=== PATIENT | female | born 1980 | race Caucasian/White ===

== ENCOUNTER 2022-01-20 01:52 | Emergency (ER) | payer MEDICARE, MEDICAID ==
[2022-01-20] VITALS (11 sets, daily range): BP systolic 91–123; BP diastolic 42–97
[~2022-01-20] VITALS: Ht 165.1 cm; Wt 50.0 kg
[~2022-01-20 01:52] MED LIST: METRONIDAZOLE500 MG PO
[2022-01-20] MEDS ORDERED: LYRICA25 MG PO (02:43)
[2022-01-20] MEDS ORDERED: OXYCODONE5 M1 PO (02:44)
[2022-01-20 02:53] LABS: HEMATOCRIT 40.1 % (37.0-47.0); HEMOGLOBIN 13.5 g/dl (12.0-16.0); IMMATURE GRANULOCYTES 0.8 % (0.0-5.0); MEAN CELL VOLUME 93.5 fL CALC (80.0-100.0); MEAN CORPUSCULAR HGB 31.5 pG CALC (26.0-32.0); MEAN CORPUSCULAR HGB CONC 33.7 g/dL CAL (32.0-36.0); NEUT# 9.03 thou/uL (2.00-7.15); RED BLOOD COUNT 4.29 mill/uL (4.20-5.60)
[2022-01-20 03:09] LABS: ALBUMIN 4.3 g/dL (3.2-5.0); ALKALINE PHOSPHATASE 59 u/l (38-126); AMYLASE 75 u/l (30-110); BUN 11 mg/dL (7-17); BUN/CREATININE RATIO 16 (12-20 (CALC)); CHLORIDE 110 mmol/l (95-108); CREATININE 0.7 mg/dL (0.5-1.0); GFR > 60 ML/MIN (>=60 (CALC)); GFR FOR AFR.AMER. > 60 ML/MIN (>=60 (CALC)); LIPASE 96 u/l (23-300); POTASSIUM 3.9 mmol/l (3.5-5.1); SGOT/AST 20 u/l (14-36); SODIUM 144 mmol/l (137-146); TOTAL PROTEIN 7.3 g/dL (6.3-8.2)
[2022-01-20 03:13] LABS: ANION GAP 11 (6-22 (CALC)); BILIRUBIN, TOTAL 0.2 mg/dL (0.0-1.4); CARBON DIOXIDE 27 mmol/l (22-30)
[2022-01-20 06:28] LABS: URINE BILIRUBIN - DIPSTICK NEGATIVE (NEGATIVE); URINE BLOOD DIPSTICK SMALL (NEGATIVE); URINE COLOR YELLOW; URINE GLUCOSE - DIPSTICK NEGATIVE (NEGATIVE); URINE KETONE NEGATIVE (NEGATIVE); URINE PROTEIN - DIPSTICK TRACE mg/dL (NEG-TRACE); URINE SPECIFIC GRAVITY <=1.005; URINE UROBILINOGEN - DIPSTICK 0.2 E.U./dL (0.2)
[2022-01-20 06:29] LABS: URINE LEUK ESTERASE SMALL (NEGATIVE); URINE NITRITE - DIPSTICK NEGATIVE (Negative)
[2022-01-20 06:37] LABS: URINE SQUAMOUS EPITHELIAL CELL FEW EPI/hpf (0-FEW); URINE WBC 20-50 WBC/hpf (0-5)
[2022-01-20] MEDS ORDERED: MACROBID100 M1 PO (06:48)
== END 2022-01-20 09:42 | disposition home or self-care (01) ==
LOC: ED 01:52
PROVIDERS: Family Medicine
DX: N39.0 Urinary tract infection, site not specified (principal); F17.200 Nicotine dependence, unspecified, uncomplicated; B96.4 Proteus (mirabilis) (morganii) as the cause of diseases classified elsewhere
CPT/HCPCS: Q9967

== ENCOUNTER 2022-02-24 07:39 | Observation (INO) | payer MEDICARE ==
[~2022-02-24] VITALS: Ht 165.1 cm; Wt 51.0 kg
[2022-02-24] VITALS (7 sets, daily range): BP systolic 115–137; BP diastolic 51–64
[~2022-02-24 07:39] MED LIST changes: +LYRICA150 MG PO; +MACROBID100 M1 PO; +PERCOCET 10/31 COMBO PO
--- NOTE | 2022-02-24 07:40 | NUR ---
PT ARRIVES AMBULATORY TO ROOM FOR TRIAGE AT THIS TIME
[2022-02-24 08:09] LABS: HEMATOCRIT 42.1 % (37.0-47.0); HEMOGLOBIN 13.9 g/dl (12.0-16.0); IMMATURE GRANULOCYTES 0.2 % (0.0-5.0); MEAN CELL VOLUME 95.9 fL CALC (80.0-100.0); MEAN CORPUSCULAR HGB 31.7 pG CALC (26.0-32.0); NEUT# 13.13 thou/uL (2.00-7.15); RED BLOOD COUNT 4.39 mill/uL (4.20-5.60); RED CELL DISTRI WIDTH 12.4 % (11.5-15.5)
[2022-02-24 08:27] LABS: ALBUMIN 4.6 g/dL (3.2-5.0); ALKALINE PHOSPHATASE 68 u/l (38-126); ANION GAP 16 (6-22 (CALC)); BUN 16 mg/dL (7-17); BUN/CREATININE RATIO 22 (12-20 (CALC)); CARBON DIOXIDE 26 mmol/l (22-30); CHLORIDE 106 mmol/l (95-108); CREATININE 0.7 mg/dL (0.5-1.0); GFR FOR AFR.AMER. > 60 ML/MIN (>=60 (CALC)); GFR OTHER RACES > 60 ML/MIN (>=60 (CALC)); LIPASE 148 u/l (23-300); POTASSIUM 4.1 mmol/l (3.5-5.1); SGOT/AST 17 u/l (14-36); SODIUM 144 mmol/l (137-146); TOTAL PROTEIN 7.8 g/dL (6.3-8.2)
[2022-02-24 08:30] LABS: BILIRUBIN, TOTAL 0.3 mg/dL (0.0-1.4)
--- NOTE | 2022-02-24 11:14 | NUR ---
PT ARRIVED TO [facility] VIA WHEEL CHAIR . ACCOMPAINIED BY STAFF. PT A/OX3 IV SITE NOTED TO LAC . PT C/O PAIN . WILL MEDICATE PER EMAR. AIDS HELPING GETTING HER SETTLED. ALL SAFETY PRECAUTIONS IN PLACE WITH CALL LIGHT IN REACH
--- NOTE | 2022-02-24 11:20 | NUR ---
PT TRANSPORTED TO 268. NURSE REPORT GIVEN AT BEDSIDE. PT VSS IN NO ACUTE DISTRESS
[2022-02-24 11:32] LABS: URINE BILIRUBIN - DIPSTICK NEGATIVE (NEGATIVE); URINE BLOOD DIPSTICK LARGE (NEGATIVE); URINE GLUCOSE - DIPSTICK NEGATIVE (NEGATIVE); URINE KETONE NEGATIVE (NEGATIVE); URINE LEUK ESTERASE TRACE (NEGATIVE); URINE PROTEIN - DIPSTICK TRACE mg/dL (NEG-TRACE)
[2022-02-24 11:45] LABS: URINE COLOR DK. YELLOW; URINE NITRITE - DIPSTICK POSITIVE (Negative)
--- NOTE | 2022-02-24 12:30 | NUR ---
PT RESTING IN LOW FOWLERS POSITION. A/OX3 PT ASSESSMENT AND VS COMPLETED. PT IV NOTED TO LAC. INFUSING BOLUS. PT C/O PAIN. MEDICATED PER EMAR. PT DENIES TAKING TYLENOL AT THE MOMENT DUE TO FEELING NAUSEAS AND VOMITING SMALL AMOUNTS. PT DENIES ADDITIONAL NEEDS AT THE TIME ALL SAFETY PRECAUTIONS IN PLACE. WITH CALL LIGHT IN REACH.
[2022-02-24 12:31] LABS: URINE BACTERIA MANY hpf; URINE EPITHELIAL CELLS FEW EPI/hpf (0-FEW); URINE RBC 25-50 RBC/hpf (0-5)
[2022-02-24] MEDS ORDERED: PAROXETINE10 MG PO (15:42)
[2022-02-24] MEDS ORDERED: TIZANIDINE4 MG PO (15:43)
[2022-02-24] MEDS ORDERED: RAYOS5 MG PO (15:43)
--- NOTE | 2022-02-24 16:30 | NUR ---
PT RESTING IN LOW FOWLERS POSITION. RESPIRATIONS EVEN UNLABORED. PT C/O PAIN MEDICATED PER EMAR. AND NAUSEA. PT DENIES ADDITIONAL NEEDS ALL SAFETY PRTECAUTIONS IN PLACE WITH CALL LIGHT IN REACH
--- NOTE | 2022-02-24 16:43 | NUR ---
CRITICAL LAB OF LACTIC ACID 3.3 INFORMED TIRE DEBEADER OF LEVEL. SEE ORDERS.
--- NOTE | 2022-02-24 19:25 | NUR ---
PATIENT ALERT. ABLE TO MAKE NEEDS KNOWN. ASSESSMENT COMPLETE. NO SIGNS OF DISTRESS OR PAIN AT THIS TIME. PATIENT GETTING SET UP IN BATHROOM FOR SHOWER BY COMPOSING ROOM MACHINIST APPRENTICE. WILL CONTINUE TO MONITOR.
--- NOTE | 2022-02-24 23:40 | NUR ---
PATIENT SITTING UP IN BED TALKING ON THE PHONE. VOICED PAIN MEDICATION WAS HELPFUL. PATIENT REQUESTED A SNACK AND RECEIVED. CALL LIGHT AND BELONGINGS REMAIN IN REACH.
--- NOTE | 2022-02-25 03:17 | NUR ---
NEW BAG OF IV FLUIDS HUNG. NO COMPLAINTS VOICED BY PATIENT. CALL LIGHT AND BELONGINGS REMAIN IN PATIENTS REACH.
[2022-02-25 04:25] VITALS: BP 117/39
[2022-02-25 05:29] LABS: MEAN CELL VOLUME 98.7 fL CALC (80.0-100.0); MEAN CORPUSCULAR HGB CONC 32.4 g/dL CAL (32.0-36.0); RED BLOOD COUNT 3.03 mill/uL (4.20-5.60); RED CELL DISTRI WIDTH 12.7 % (11.5-15.5)
[2022-02-25 05:41] LABS: ANION GAP 10 (6-22 (CALC)); BUN 12 mg/dL (7-17); BUN/CREATININE RATIO 21 (12-20 (CALC)); CARBON DIOXIDE 27 mmol/l (22-30); CHLORIDE 109 mmol/l (95-108); CREATININE 0.6 mg/dL (0.5-1.0); GFR FOR AFR.AMER. > 60 ML/MIN (>=60 (CALC)); GFR OTHER RACES > 60 ML/MIN (>=60 (CALC)); MAGNESIUM 1.8 mg/dL (1.6-2.3); POTASSIUM 3.9 mmol/l (3.5-5.1); SODIUM 141 mmol/l (137-146)
[2022-02-25 05:43] LABS: HEMOGLOBIN 9.7 g/dl (12.0-16.0)
[2022-02-25 05:44] LABS: HEMATOCRIT 29.9 % (37.0-47.0)
[2022-02-25 07:04] VITALS: BP 96/43
--- NOTE | 2022-02-25 08:00 | NUR ---
GOT REPORT FROM TURF SALES PERSON NURSE. PATIENT ASSESSED, AOX3, PATIENT DENIES ANY NAUSEA OR VOMITTING SINCE LAST NIGHT. PATIENT STATES THAT SHE IS FEELING BETTER THAN YESTERDAY AND SHE WAS ABLE TO EAT BREAKFAST THIS MORNING WITHOUT GETTING SICK. PATIENTHAS NO COMPLAINT OR CONCERNS AT THIS TIME. CALL LIGHT AND BEDSIDE TABLE WITH IN REACH OF PATIENT. ADVISED TO CALL IF SHE NEEDED ANYTHING.
[2022-02-25] MEDS ORDERED: KEFLEX500 MG PO (12:14)
--- NOTE | 2022-02-25 12:39 | NUR ---
Discharge instructions given. Patient verbalizes understanding of same. Discharged in stable condition via Wheelchair to Home with family. All belongings sent with pt.
== END 2022-02-25 12:39 | disposition home or self-care (01) ==
LOC: ED 07:39 → ED-I 10:30 → ED 10:53 → MS2 10:54
PROVIDERS: Family Medicine; ADMIT Hospitalist; ATTEND Hospitalist
DX: R11.15 Cyclical vomiting syndrome unrelated to migraine (principal); N39.0 Urinary tract infection, site not specified; B96.1 Klebsiella pneumoniae [K. pneumoniae] as the cause of diseases classified elsewhere; G43.909 Migraine, unspecified, not intractable, without status migrainosus; M16.0 Bilateral primary osteoarthritis of hip; F17.200 Nicotine dependence, unspecified, uncomplicated; Z79.891 Long term (current) use of opiate analgesic
CPT/HCPCS: G0378; Q9967; S0164

== ENCOUNTER 2022-03-24 04:21 | Emergency (ER) | payer MEDICARE, MEDICAID ==
[~2022-03-24] VITALS: Ht 165.1 cm; Wt 52.2 kg
[2022-03-24] VITALS (10 sets, daily range): BP systolic 83–111; BP diastolic 36–92
[~2022-03-24 04:21] MED LIST changes: +KEFLEX500 MG PO; +PAROXETINE10 MG PO; +RAYOS5 MG PO; +TIZANIDINE4 MG PO
[2022-03-24 05:31] LABS: IMMATURE GRANULOCYTES 0.2 % (0.0-5.0); MEAN CELL VOLUME 92.9 fL CALC (80.0-100.0); MEAN CORPUSCULAR HGB 31.6 pG CALC (26.0-32.0); NEUT# 12.38 thou/uL (2.00-7.15); RED BLOOD COUNT 4.37 mill/uL (4.20-5.60); RED CELL DISTRI WIDTH 12.7 % (11.5-15.5)
[2022-03-24 05:39] LABS: HEMOGLOBIN 13.8 g/dl (12.0-16.0)
[2022-03-24 05:40] LABS: HEMATOCRIT 40.6 % (37.0-47.0)
[2022-03-24 05:45] LABS: ALBUMIN 4.5 g/dL (3.2-5.0); ALKALINE PHOSPHATASE 62 u/l (38-126); ANION GAP 11 (6-22 (CALC)); BUN 12 mg/dL (7-17); BUN/CREATININE RATIO 17 (12-20 (CALC)); CARBON DIOXIDE 25 mmol/l (22-30); CHLORIDE 109 mmol/l (95-108); CREATININE 0.7 mg/dL (0.5-1.0); GFR FOR AFR.AMER. > 60 ML/MIN (>=60 (CALC)); GFR OTHER RACES > 60 ML/MIN (>=60 (CALC)); LIPASE 143 u/l (23-300); POTASSIUM 3.9 mmol/l (3.5-5.1); SGOT/AST 15 u/l (14-36); SODIUM 142 mmol/l (137-146); TOTAL PROTEIN 7.7 g/dL (6.3-8.2)
[2022-03-24 05:47] LABS: BILIRUBIN, TOTAL 0.5 mg/dL (0.0-1.4)
[2022-03-24 06:02] LABS: URINE BILIRUBIN - DIPSTICK NEGATIVE (NEGATIVE); URINE BLOOD DIPSTICK SMALL (NEGATIVE); URINE COLOR YELLOW; URINE GLUCOSE - DIPSTICK NEGATIVE (NEGATIVE); URINE PROTEIN - DIPSTICK 100 mg/dL (NEG-TRACE); URINE SPECIFIC GRAVITY >=1.030; URINE UROBILINOGEN - DIPSTICK 0.2 E.U./dL (0.2)
[2022-03-24 06:09] LABS: URINE LEUK ESTERASE SMALL (NEGATIVE); URINE NITRITE - DIPSTICK NEGATIVE (Negative)
[2022-03-24 06:12] LABS: URINE KETONE Negative (NEGATIVE)
[2022-03-24 06:13] LABS: URINE WBC >100 WBC/hpf (0-5)
[2022-03-24 06:14] LABS: URINE BACTERIA MANY hpf; URINE EPITHELIAL CELLS MODERATE EPI/hpf (0-FEW)
[2022-03-24] MEDS ORDERED: ULTRAM50 MG PO (06:25)
[2022-03-24] MEDS ORDERED: ZOFRAN4 MG/TAB PO (06:25)
[2022-03-24] MEDS ORDERED: PYRIDIUM200 MG PO (06:25)
[2022-03-24] MEDS ORDERED: KEFLEX500 MG PO (06:25)
== END 2022-03-24 06:45 | disposition home or self-care (01) ==
LOC: ED 04:21
DX: N39.0 Urinary tract infection, site not specified (principal); F17.210 Nicotine dependence, cigarettes, uncomplicated; Z79.891 Long term (current) use of opiate analgesic

== ENCOUNTER 2022-04-01 10:50 | Observation (INO) | payer MEDICARE, MEDICAID ==
[~2022-04-01] VITALS: Ht 165.1 cm; Wt 70.0 kg
[2022-04-01] VITALS (31 sets, daily range): BP systolic 81–145; BP diastolic 26–115
[~2022-04-01 10:50] MED LIST changes: +PYRIDIUM200 MG PO; +ULTRAM50 MG PO; +ZOFRAN4 MG/TAB PO
[2022-04-01 13:35] LABS: HEMATOCRIT 39.2 % (37.0-47.0); HEMOGLOBIN 13.1 g/dl (12.0-16.0); IMMATURE GRANULOCYTES 0.4 % (0.0-5.0); MEAN CELL VOLUME 92.9 fL CALC (80.0-100.0); MEAN CORPUSCULAR HGB CONC 33.4 g/dL CAL (32.0-36.0); NEUT# 11.67 thou/uL (2.00-7.15); RED BLOOD COUNT 4.22 mill/uL (4.20-5.60); RED CELL DISTRI WIDTH 12.6 % (11.5-15.5)
[2022-04-01 13:37] LABS: ALKALINE PHOSPHATASE 60 u/l (38-126); ANION GAP 14 (6-22 (CALC)); BILIRUBIN, TOTAL 0.5 mg/dL (0.0-1.4); BUN 9 mg/dL (7-17); BUN/CREATININE RATIO 17 (12-20 (CALC)); CARBON DIOXIDE 19 mmol/l (22-30); CHLORIDE 112 mmol/l (95-108); CREATININE 0.5 mg/dL (0.5-1.0); GFR FOR AFR.AMER. > 60 ML/MIN (>=60 (CALC)); GFR OTHER RACES > 60 ML/MIN (>=60 (CALC)); LIPASE 32 u/l (23-300); POTASSIUM 4.6 mmol/l (3.5-5.1); SGOT/AST 25 u/l (14-36); SODIUM 140 mmol/l (137-146)
[2022-04-01 15:26] LABS: URINE BILIRUBIN - DIPSTICK NEGATIVE (NEGATIVE); URINE BLOOD DIPSTICK TRACE-INTACT (NEGATIVE); URINE COLOR YELLOW; URINE GLUCOSE - DIPSTICK NEGATIVE (NEGATIVE); URINE KETONE >=80 mg/dL (NEGATIVE); URINE LEUK ESTERASE NEGATIVE (NEGATIVE); URINE PROTEIN - DIPSTICK NEGATIVE (NEG-TRACE); URINE UROBILINOGEN - DIPSTICK 0.2 E.U./dL (0.2)
[2022-04-01 15:27] LABS: URINE NITRITE - DIPSTICK NEGATIVE (Negative)
[2022-04-02 01:19] VITALS: BP 139/38
[2022-04-02 04:23] VITALS: BP 120/50
[2022-04-02 04:54] VITALS: BP 120/50
[2022-04-02 05:03] LABS: HEMATOCRIT 34.5 % (37.0-47.0); HEMOGLOBIN 11.3 g/dl (12.0-16.0); IMMATURE GRANULOCYTES 0.2 % (0.0-5.0); MEAN CELL VOLUME 96.6 fL CALC (80.0-100.0); MEAN CORPUSCULAR HGB 31.7 pG CALC (26.0-32.0); MEAN CORPUSCULAR HGB CONC 32.8 g/dL CAL (32.0-36.0); NEUT# 9.21 thou/uL (2.00-7.15); RED BLOOD COUNT 3.57 mill/uL (4.20-5.60); RED CELL DISTRI WIDTH 12.9 % (11.5-15.5)
[2022-04-02 05:16] LABS: ALKALINE PHOSPHATASE 53 u/l (38-126); BILIRUBIN, TOTAL 0.3 mg/dL (0.0-1.4); BUN 8 mg/dL (7-17); BUN/CREATININE RATIO 13 (12-20 (CALC)); CHLORIDE 111 mmol/l (95-108); CREATININE 0.6 mg/dL (0.5-1.0); GFR FOR AFR.AMER. > 60 ML/MIN (>=60 (CALC)); GFR OTHER RACES > 60 ML/MIN (>=60 (CALC)); MAGNESIUM 1.7 mg/dL (1.6-2.3); POTASSIUM 3.8 mmol/l (3.5-5.1); SGOT/AST 14 u/l (14-36); SODIUM 141 mmol/l (137-146); TOTAL PROTEIN 5.6 g/dL (6.3-8.2)
[2022-04-02 05:18] LABS: ALBUMIN 3.1 g/dL (3.2-5.0); ANION GAP 10 (6-22 (CALC)); CARBON DIOXIDE 24 mmol/l (22-30)
[2022-04-02 15:48] VITALS: BP 98/34
[2022-04-02 19:22] VITALS: BP 84/40
[2022-04-03 05:19] LABS: HEMATOCRIT 34.2 % (37.0-47.0); HEMOGLOBIN 11.1 g/dl (12.0-16.0); IMMATURE GRANULOCYTES 0.3 % (0.0-5.0); MEAN CELL VOLUME 97.4 fL CALC (80.0-100.0); MEAN CORPUSCULAR HGB 31.6 pG CALC (26.0-32.0); MEAN CORPUSCULAR HGB CONC 32.5 g/dL CAL (32.0-36.0); NEUT# 3.57 thou/uL (2.00-7.15); RED BLOOD COUNT 3.51 mill/uL (4.20-5.60)
[2022-04-03 05:27] LABS: ANION GAP 8 (6-22 (CALC)); BUN 8 mg/dL (7-17); BUN/CREATININE RATIO 14 (12-20 (CALC)); CARBON DIOXIDE 25 mmol/l (22-30); CHLORIDE 107 mmol/l (95-108); CREATININE 0.6 mg/dL (0.5-1.0); GFR FOR AFR.AMER. > 60 ML/MIN (>=60 (CALC)); GFR OTHER RACES > 60 ML/MIN (>=60 (CALC)); MAGNESIUM 1.6 mg/dL (1.6-2.3); POTASSIUM 3.9 mmol/l (3.5-5.1); SODIUM 137 mmol/l (137-146)
[2022-04-03 07:42] VITALS: BP 97/49
== END 2022-04-03 11:26 | disposition home or self-care (01) ==
LOC: ED 10:50 → ED-I 17:00 → ED 17:47 → MS2 17:48
PROVIDERS: Family Medicine; ADMIT Internal Medicine; ATTEND Internal Medicine
DX: R11.15 Cyclical vomiting syndrome unrelated to migraine (principal); E86.0 Dehydration; I95.9 Hypotension, unspecified; F17.200 Nicotine dependence, unspecified, uncomplicated
CPT/HCPCS: Q9967; S0164

== ENCOUNTER 2022-05-08 08:46 | Observation (INO) | payer MEDICARE, MEDICAID ==
[~2022-05-08] VITALS: Ht 165.1 cm; Wt 50.0 kg
[2022-05-08] VITALS (20 sets, daily range): BP systolic 92–157; BP diastolic 40–118
--- NOTE | 2022-05-08 09:00 | NUR ---
PT TO ROOM VIA WC
--- NOTE | 2022-05-08 09:15 | NUR ---
DILAUDID IV ON HOLD AT THIS TIME DUE TO PATIENT HR OF 50. AWARE
[2022-05-08 09:31] LABS: IMMATURE GRANULOCYTES 0.2 % (0.0-5.0); MEAN CELL VOLUME 92.5 fL CALC (80.0-100.0); MEAN CORPUSCULAR HGB CONC 33.5 g/dL CAL (32.0-36.0); NEUT# 2.73 thou/uL (2.00-7.15); RED BLOOD COUNT 5.46 mill/uL (4.20-5.60); RED CELL DISTRI WIDTH 13.5 % (11.5-15.5)
[2022-05-08 09:45] LABS: HEMATOCRIT 50.5 % (37.0-47.0); HEMOGLOBIN 16.9 g/dl (12.0-16.0)
[2022-05-08 09:47] LABS: ANION GAP 18 (6-22 (CALC)); BILIRUBIN, TOTAL 0.4 mg/dL (0.0-1.4); BUN 13 mg/dL (7-17); BUN/CREATININE RATIO 19 (12-20 (CALC)); CARBON DIOXIDE 22 mmol/l (22-30); CHLORIDE 106 mmol/l (95-108); CREATININE 0.7 mg/dL (0.5-1.0); GFR FOR AFR.AMER. > 60 ML/MIN (>=60 (CALC)); GFR OTHER RACES > 60 ML/MIN (>=60 (CALC)); LIPASE 65 u/l (23-300); POTASSIUM 3.6 mmol/l (3.5-5.1); SODIUM 142 mmol/l (137-146)
--- NOTE | 2022-05-08 09:48 | NUR ---
PATIENT COP WINDER LIGHT REQUESTING ATIVAN TO HELP HER RELAX. MARY MACHADO AWARE
[2022-05-08 09:52] LABS: ALBUMIN 4.9 g/dL (3.2-5.0); ALKALINE PHOSPHATASE 84 u/l (38-126); SGOT/AST 32 u/l (14-36)
[2022-05-08] MEDS ORDERED: OXYCODO-APAP1 TA2 PO (09:55)
[2022-05-08 09:58] LABS: HCG SERUM/URINE (NEG/POS) NEGATIVE (NEGATIVE)
--- NOTE | 2022-05-08 10:42 | NUR ---
PATIENT RETURNS FROM RADIOLOGY REQUESTING MORE MEICATION FOR NAUSEA, ANXIETY AND FOR PAIN
--- NOTE | 2022-05-08 11:20 | NUR ---
PATIENT MEDICATED WITH ZOFRAN AND FLUIDS IV. PATIENT REQUESTING PAIN MEDICATION. ATTEMPTING TO OBTAIN BLOOD PRESSURE
--- NOTE | 2022-05-08 12:11 | NUR ---
PATIENT REPORTS NOT HAVING TO GO TO BATHROOM AT THIS TIME AND REFUSING STRAIGHT CATH. SECOND LITER OF IV FLUIDS INFUSING. WAITING ON URINE. PATIENT AWARE
--- NOTE | 2022-05-08 12:45 | NUR ---
PATIENT TO BATHROOM AFTER SPOKE TO PATIENT ABOUT RESULTS
--- NOTE | 2022-05-08 13:45 | NUR ---
PATIENT RESTING ON STRETCHER PENDING DISPO. DENIES ANY NEEDS AT THIS TIME.
[2022-05-08 13:46] LABS: URINE BILIRUBIN - DIPSTICK NEGATIVE (NEGATIVE); URINE BLOOD DIPSTICK MODERATE (NEGATIVE); URINE COLOR YELLOW; URINE GLUCOSE - DIPSTICK NEGATIVE (NEGATIVE); URINE KETONE >=80 mg/dL (NEGATIVE); URINE LEUK ESTERASE NEGATIVE (NEGATIVE); URINE PH 5.5 (4.5-8.0); URINE PROTEIN - DIPSTICK NEGATIVE (NEG-TRACE); URINE UROBILINOGEN - DIPSTICK 0.2 E.U./dL (0.2)
[2022-05-08 13:49] LABS: URINE EPITHELIAL CELLS FEW EPI/hpf (0-FEW); URINE NITRITE - DIPSTICK NEGATIVE (Negative)
--- NOTE | 2022-05-08 14:30 | NUR ---
AT BEDSIDE TO DISCUSS RESULTS AND PLAN OF CARE
--- NOTE | 2022-05-08 15:00 | NUR ---
PATIENT MEDICATED PER MD ORDER FOR NAUSEA. WAITING ON ROOM ASSIGNMENT
--- NOTE | 2022-05-08 15:45 | NUR ---
Admission Note Report Given to: LONDON CORADO Transported by: Wheelchair X Stretcher Transported with: X Nurse Transporter Patent IV O2 Terrazzo Tile Setter Location: ICU X [facility]2 PATIENT MED SURG WITH PATENT IV, GLASSES, CLOTHING, SHOES, BLACK PHONE. REPORT GIVEN, CARE RELINQUISHED.
--- NOTE | 2022-05-08 16:05 | NUR ---
Admission Note Report Given to: LONDON CORADO Transported by: Wheelchair X Stretcher Transported with: X Nurse Transporter X Patent IV O2 Rod Finisher Location: ICU X [facility] BEDSIDE REPORT GIVEN, PATIENT TAKES GLASSES AND BLACK CELL PHONE AND CLOTHING. CARE RELINQUISHED.
--- NOTE | 2022-05-08 16:10 | NUR ---
PT ARRIVED TO MS @ 1543 VIA STRETCHER, ACCOMPANIED BY JAMAR BARRY. PT ORIENTED TO ROOM AND USE OF CALL LIGHT. PT A&O X3. EVEN AND UNLABORED RESPIRATIONS; CLEAR LUNG SOUNDS UPON AUSCULTATION. IV SITE HEALTHY AND PATENT. ACTIVE BOWEL SOUNDS X4 QUADRANTS. PT C/O NAUSEA AND ABDOMINAL PAIN LEVEL 7/10. ADMINISTERED NAUSEA MEDICATION PER EMAR. EXPLAINED PT THAT CARGO BRACER WILL CALL DR RUIZ TO ORDER PAIN MEDICATION SINCE THERE IS NOT ON EMAR. SAFETY PRECAUTIONS IN PLACE WITH CALL LIGHT IN REACH.
--- NOTE | 2022-05-08 16:51 | NUR ---
PT C/O HEADACHE AND ABDOMINAL PAIN LEVEL 7/10: ADMINISTERED PAIN MEDICATION PER EMAR. SAFETY PRECAUTIONS IN PLACE WITH CALL LIGHT IN REACH.
--- NOTE | 2022-05-08 19:30 | NUR ---
MONICA RESTING IN BED, ASSESMENT COMPLATED PATIENT REPORT NAUSE AND PAIN 6/10 PATIENT MEDICATED BY PREVIOUS SHIFT NURSE NEXT DOSE IS NOT DUE UNTIL LATER IN THE SHIFT. PATIENT REFUSED PUPIL ASSESMENT STATES "THE LIGTH IS TO BRIGTH". PATIENT ASSISTED TO SHOWER. PATIEN IN AIRBORNE ISOLATION POSITIVE FOR COVID. CALL LIGHT IN REACH AND BED. CONTINUE TO MONITOR.
--- NOTE | 2022-05-08 20:40 | NUR ---
MONICA REQUESTED MEDICATION TO HELP HER SLEEP PATIENT SPECIFIC REQUEST FOR BENADRYL ATIVAN OR HALDOL. DR RUIZ NOTIFIED AND ORDER SONATA 5MG AT BED TIME PRN. MAR UPDATED.
[2022-05-09] VITALS (7 sets, daily range): BP systolic 99–129; BP diastolic 27–89
--- NOTE | 2022-05-09 00:05 | NUR ---
PATIENT IN BED AWAKE NO S/S OF DISTRESS NOTED. PATIEN MEDICATED FOR NAUSEA. CALL LIGHT IN REACH AND BED IN LOWEST POSITION.
--- NOTE | 2022-05-09 04:30 | NUR ---
PATIENT IN BED AWAKE. NO S/S OF DISTRESS NOTED AT THIS TIME. CALL LIGHT IN REACH AND BED IN LOWEST POSITION.
[2022-05-09 06:25] LABS: IMMATURE GRANULOCYTES 0.2 % (0.0-5.0); MEAN CELL VOLUME 90.6 fL CALC (80.0-100.0); MEAN CORPUSCULAR HGB CONC 34.2 g/dL CAL (32.0-36.0); NEUT# 4.28 thou/uL (2.00-7.15); RED BLOOD COUNT 4.81 mill/uL (4.20-5.60); RED CELL DISTRI WIDTH 13.5 % (11.5-15.5)
[2022-05-09 07:00] LABS: HEMATOCRIT 43.6 % (37.0-47.0); HEMOGLOBIN 14.9 g/dl (12.0-16.0)
[2022-05-09 07:08] LABS: ALBUMIN 4.3 g/dL (3.2-5.0); ALKALINE PHOSPHATASE 63 u/l (38-126); ANION GAP 18 (6-22 (CALC)); BILIRUBIN, TOTAL 0.3 mg/dL (0.0-1.4); BUN 8 mg/dL (7-17); BUN/CREATININE RATIO 14 (12-20 (CALC)); CARBON DIOXIDE 23 mmol/l (22-30); CHLORIDE 105 mmol/l (95-108); CREATININE 0.6 mg/dL (0.5-1.0); GFR FOR AFR.AMER. > 60 ML/MIN (>=60 (CALC)); GFR OTHER RACES > 60 ML/MIN (>=60 (CALC)); MAGNESIUM 1.8 mg/dL (1.6-2.3); POTASSIUM 3.3 mmol/l (3.5-5.1); SGOT/AST 38 u/l (14-36); SODIUM 143 mmol/l (137-146)
[2022-05-09 07:15] LABS: TOTAL PROTEIN 7.1 g/dL (6.3-8.2)
--- NOTE | 2022-05-09 08:30 | NUR ---
PT IN BED: A&O X3. EVEN AND UNLABORED RESPIRATIONS; CLEAR LUNG SOUNDS UPON AUSCULTATION. IV SITE HEALTHY AND PATENT. ACTIVE BOWEL SOUNDS X4 QUADRANTS. SAFETY PRECAUTIONS IN PLACE WITH CALL LIGHT IN REACH.
--- NOTE | 2022-05-09 10:30 | NUR ---
PT C/O NAUSEA AND HAVE EMESIS X1: ADMINISTERED NAUSEA MEDICATION PER EMAR. SAFETY PRECAUTIONS IN PLACE WITH CALL LIGHT IN REACH.
--- NOTE | 2022-05-09 12:00 | NUR ---
PT SITTING ON BED. PT C/O ABDOMINAL PAIN LEVEL 9/10; ADMINISTERED PAIN MEDICATION PER EMAR. SAFETY PRECAUTIONS IN PLACE WITH CALL LIGHT IN REACH.
--- NOTE | 2022-05-09 15:08 | NUR ---
PT C/O PAIN ON IV SITE: REMOVED, #20 LEFT FOREARM,, CATHETER INTACT UPON REMOVAL. NEW IV PLACED BY JAMAR GUILLEN. #20G RIGHT FOREARM, PT TOLERATED WELL. SAFETY PRECAUTIONS IN PLACE WITH CALL LIGHT IN REACH.
--- NOTE | 2022-05-09 16:34 | NUR ---
PT ON BED TALKING ON CELLPHONE. PT C/O NAUSEA; ADMINISTERED NAUSEA MEDICATION PER EMAR. SAFETY PRECAUTIONS IN PLACE WITH CALL LIGHT IN REACH.
--- NOTE | 2022-05-09 19:45 | NUR ---
PATIENT SITTING UP IN BED-AWAKE ALERT AND ORIENTEDX3. PATIENT WITH C/O NAUSEA AND PAIN. PATIENT IS TAKING FLUIDS AT THIS TIME. MEDICATED WITH ZOFRAN 4MG IVP FOR NAUSEA NAD WITH PERCOCET 10/325MG PO FOR PAIN-8/10 ON PAIN SCALE. IVF PATENT AND INFUSING VIA RAC SITE AT 100CC/HR./ SITE REMAINS HEALTHY AT THIS TIME. ON ISOLATION FOR COVID. LUNGS ARE CLEAR, O2 SAT IS 99% ON RA. ABD IS SOFT WITH ACTIVE BS. LAST BM WAS YESTERDAY. DENIES ANY DIFFICULTY WITH URINATION. NO PERIPHERAL EDEMA NOTED. PULSES ARE PALPABLE. SAFETY PRECAUTIONS REINFORCED. CALL LIGHT IN REACH. WILL CONT TO MONITOR.
--- NOTE | 2022-05-09 23:13 | NUR ---
PATIENT SITTING UP IN BED-MEDICATED FOR SLEEP WITH SONATA 5MG PO. ASKING FOR MEDICATION FOR NAUSEA-TOO EARLY FOR ZOFRAN OR PHENERGAN. WILL MEDICATE WHEN AVAILABLE PER EMAR. PATIENT IS TAKING PO FLUIDS AT THIS TIME. IVF PATENT AND INFUSING VIA RIGHT FOREARM AT 100CC/HR. SITE REMAINS HEALTHY AT THIS TIME. SAFETY PRECAUTIONS REINFORCED. CALL LIGHT IN REACH. WILL CONT TO MONITOR.
--- NOTE | 2022-05-10 00:54 | NUR ---
RESTING IN BED-MEDICATED WITH PHENERGAN FOR NAUSEA AND WITH PERCOCET FOR PAIN. CALL LIGHT IN REACH. WILL CONT TO MONITOR.
--- NOTE | 2022-05-10 04:33 | NUR ---
RESTING IN BED AT THIS TIME. IVF PATENT AND INFUSINGT VIA RIGHT FOREARM AT 100CC/HR. CALL LIGHT IN REACH. WILL CONT TO MONITOR.
[2022-05-10 05:16] VITALS: BP 90/33
[2022-05-10 05:32] VITALS: BP 95/26
--- NOTE | 2022-05-10 06:16 | NUR ---
PATIENT ASKING FOR PERCOCET-NOT GIVEN EARLIER DUE TO LOW BP. WILL RE-EVAL BP. WILL CONT TO MONITOR.
[2022-05-10 06:47] LABS: HEMATOCRIT 37.9 % (37.0-47.0); IMMATURE GRANULOCYTES 0.3 % (0.0-5.0); MEAN CELL VOLUME 93.1 fL CALC (80.0-100.0); MEAN CORPUSCULAR HGB 30.7 pG CALC (26.0-32.0); NEUT# 1.3 thou/uL (2.00-7.15); RED BLOOD COUNT 4.07 mill/uL (4.20-5.60); RED CELL DISTRI WIDTH 14.1 % (11.5-15.5)
[2022-05-10 07:04] LABS: HEMOGLOBIN 12.5 g/dl (12.0-16.0)
[2022-05-10 07:11] VITALS: BP 111/47
[2022-05-10 07:20] VITALS: BP 142/59
[2022-05-10 07:35] LABS: ANION GAP 10 (6-22 (CALC)); BUN 9 mg/dL (7-17); BUN/CREATININE RATIO 15 (12-20 (CALC)); CARBON DIOXIDE 24 mmol/l (22-30); CHLORIDE 111 mmol/l (95-108); CREATININE 0.6 mg/dL (0.5-1.0); GFR FOR AFR.AMER. > 60 ML/MIN (>=60 (CALC)); GFR OTHER RACES > 60 ML/MIN (>=60 (CALC)); MAGNESIUM 1.9 mg/dL (1.6-2.3); POTASSIUM 3.8 mmol/l (3.5-5.1); SODIUM 142 mmol/l (137-146)
--- NOTE | 2022-05-10 07:40 | NUR ---
PT RESTING IN SEMI FOLWERS POSITION. PT A/OX3. ASSESSMENT COMPLETED. RESPIRATIONS EVEN AND UNLABORED ON ROOM AIR. LUNG SOUNDS PRISCILLA.R HEART RHYTHM NORMAL. BOWEL SOUNDS ACTIVE LBM 05/10/22. PULSES STRONG. #20G RFA INFUSING WITH IVF PER ORDER, SITE PATENT. SKIN INTACT. PT C/O OF 10/10 HEADACHE AND NAUSEA, MEDICATED PER EMAR. PT DENIES OF ANY ADDITIONAL NEEDS. ALL SAFTEY PRECAUTIONS ARE IN PLACE WITH CALL LIGHT IN REACH.
[2022-05-10 11:00] VITALS: BP 95/52
[2022-05-10] MEDS ORDERED: ZOFRAN4 MG/TAB PO (11:39)
--- NOTE | 2022-05-10 12:29 | NUR ---
PT EDUCATED ON DC INSTRUCTIONS AND NEW MEDICATIONS. PT VERBALIZED UNDERSTANDING WITH NO QUESTIONS. IV REMOVED WITH CATH INTACT. AT BEDSIDE.
--- NOTE | 2022-05-10 12:32 | NUR ---
Discharge instructions given. Patient verbalizes understanding of same. Discharged in stable condition via Wheelchair to Home with volunteer. All belongings sent with pt.
== END 2022-05-10 12:35 | disposition home or self-care (01) ==
LOC: ED 08:46 → ED-I 14:03 → ED 14:16 → MS2 14:17
PROVIDERS: Family Medicine; Nurse Practitioner; ADMIT Internal Medicine; ATTEND Internal Medicine
DX: U07.1 COVID-19 (principal); R11.2 Nausea with vomiting, unspecified; R19.7 Diarrhea, unspecified; R10.33 Periumbilical pain; M25.552 Pain in left hip; M25.551 Pain in right hip; F06.4 Anxiety disorder due to known physiological condition; K44.9 Diaphragmatic hernia without obstruction or gangrene; F17.210 Nicotine dependence, cigarettes, uncomplicated; Z79.891 Long term (current) use of opiate analgesic; Z90.49 Acquired absence of other specified parts of digestive tract
CPT/HCPCS: Q9967